=== PATIENT | male | born 1990 | race American Indian/Alaskan Native ===

== ENCOUNTER 2018-04-24 14:51 | Emergency (ER) | payer OTHER ==
[2018-04-24 15:08] VITALS: BP 111/65
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
[2018-04-24] MEDS ORDERED: MOTRIN PO ONE (16:37)
--- NOTE | 2018-04-24 19:37 | XRay Report ---
FINAL REPORT EXAM: XR SPINE CERVICAL 2-3V HISTORY: bilateral trapezius tenderness TECHNIQUE: AP, lateral, and odontoid views of the cervical spine PRIORS: None. FINDINGS: The vertebral body heights and disc spaces are well maintained. The alignment is normal. No prevertebral soft tissue swelling is seen. The odontoid is intact. IMPRESSION: Normal cervical spine.
--- NOTE | 2018-04-24 19:37 | XRay Report ---
FINAL REPORT EXAM: XR SPINE LUMBOSACRAL 2-3V HISTORY: bilateral low back tenderness TECHNIQUE: AP, lateral and coned-down views of the lumbar spine PRIORS: None. FINDINGS: The vertebral body heights are well maintained. There is mild narrowing of the L5-S1 disc space. The alignment is normal. No evidence for spondylolysis or spondylolisthesis is seen. Pedicles are intact bilaterally at all levels. The paraspinal soft tissues are unremarkable. IMPRESSION: Mild disc space narrowing L5-S1. Otherwise, negative lumbar spine.
== END 2018-04-24 18:23 | disposition home or self-care (01) ==
LOC: ED 14:51
DX: S16.1XXA Strain of muscle, fascia and tendon at neck level, initial encounter (principal); S39.012A Strain of muscle, fascia and tendon of lower back, initial encounter; G44.209 Tension-type headache, unspecified, not intractable; J45.909 Unspecified asthma, uncomplicated; Z79.899 Other long term (current) drug therapy; V89.2XXA Person injured in unspecified motor-vehicle accident, traffic, initial encounter; Y93.89 Activity, other specified; Y99.8 Other external cause status; Y92.410 Unspecified street and highway as the place of occurrence of the external cause
CPT/HCPCS: 72040; 72100; 99283